=== PATIENT | male | born 1980 | race Caucasian/White ===

== ENCOUNTER 2021-09-14 02:36 | Emergency (ER) | payer BC, OTHER, SELFPAY ==
[2021-09-14 02:37] VITALS: BP 163/108; PULSE 89; RESP 16; TEMP 37; O2SAT 98; BMI 33.9
--- NOTE | 2021-09-14 02:55 | CT_ITS ---
STUDY: CT ABDOMEN AND PELVIS WITH CONTRAST REASON FOR EXAM: Male, 41 years old. Right upper quadrant pain. RADIATION DOSAGE (If Supplied By Facility): CTDIvol = ( 16.91 ) mGy, DLP = ( 1307.06 ) mGycm TECHNIQUE: Transaxial images were obtained from the dome of the diaphragm to the symphysis pubis without oral contrast. 100 mL Isovue 370 intravenous contrast was administered. Sagittal and coronal images were reconstructed. Individualized dose optimization techniques were used for this CT. COMPARISON: May 07, 2016. November 11, 2013. November 13, 2012. FINDINGS: The visualized lung bases are unremarkable. The visualized portions of the heart are within normal limits. Attenuation of the liver, and in correlation with prior studies, suggests hepatic steatosis. Normal gallbladder and extrahepatic biliary system. Normal spleen. Normal pancreas. Normal bilateral adrenal glands. Small bilateral nonobstructive renal calculi the largest on the right measuring 5 mm. The stomach is not well distended limiting evaluation. Normal small intestine. Suture line distal sigmoid colon. The appendix is visualized and appears normal. Normal abdominal aorta. Normal inferior vena cava. Normal retroperitoneum. No intra-abdominal free air. Normal urinary bladder. Normal visualized prostate gland. Normal abdominal wall. Normal osseous structures. CT/Abdomen/Pelvis W IV Cont ONLY IMPRESSION: Small bilateral nonobstructing renal calculi. Fatty liver. Electronically Signed: Dre Rios MD at 4:34 EST , Service support ,
[2021-09-14 03:04] LABS: Bacteria 0 SEEN /hpf (None Seen); Mucous, Urine 0 SEEN /hpf (<or=2+); Red Blood Cells-Urine 0 SEEN /hpf (0-5); Squamous Epithelial Cells - UA 0 SEEN /hpf (0-5); White Blood Cells 0 SEEN /hpf (0-5)
[2021-09-14 03:05] LABS: Absolute Lymphocyte Count 3.01 X10^3/uL (0.83-4.51); Absolute Neutrophil Count 3.9 X10^3/uL (2.0-7.7); Basophil# 0.05 X10^3/uL; Basophil% 0.6 % (0-1); Eosinophil# 0.15 X10^3/uL; Eosinophils% 1.9 % (0-5); Hematocrit 41.4 % (40-54); Hemoglobin 14.3 g/dL (13.0-16.5); Lymphocyte # 3.01 X10^3/ul (0.83-4.51); Lymphocyte % 38.1 % (19-41); Mean Corp Hgb Conc 34.5 g/dL (32-36); Mean Corpuscular Hgb 29.7 pg (27.0-32.0); Mean Corpuscular Volume 85.9 fL (80-94); Mean Platelet Vol. 10.1 fl (6.2-12.0); Monocyte# 0.75 X10^3/uL; Monocyte% 9.5 % (0-10); NRBC Flagged by Analyzer 0 % (0-5); Neutrophil # 3.91 X10^3/uL (2.7-7.7); Neutrophil % 49.5 % (47-70); Platelet Count 225 K/mm3 (150-450); RBC Distribution Width CV 12.7 % (11.6-14.6); RBC Distribution Width SD 39.4 fl (35.1-43.9); Red Blood Count 4.82 M/mm3 (4.6-6.2); White Blood Count 7.9 K/mm3 (4.4-11.0)
--- NOTE | 2021-09-14 03:14 | EX.ED.DYSGE1 ---
HPI History of Present Illness Chief Complaint: Abd Pain Narrative Narrative: Patient is a 41-year-old male with past medical history of diverticulitis who had to have 18 inches of his intestine removed approximately 10 years ago. He states over the past 2 to 3 days his stomach is just felt off. He states he has been taking it easy but he went to work this evening and ate some type of hotdog and about 30 minutes later noticed increased upper abdominal pain with nausea. He states that the pain was more intense than it has been over the past few days and secondary to this he presents for evaluation [facility] Home Medications Omeprazole [Prilosec] 20 mg PO BID 11/11/13 [History Last Taken 12/14/15] ondansetron 4 mg PO Q8H PRN 7 Days #21 tab 09/14/21 [Rx Last Taken Unknown] oxycodone-acetaminophen [Endocet] 1 tab PO Q6H PRN 3 Days #12 tab 09/14/21 [Rx Last Taken Unknown] Allergy/AdvReac Type Severity Reaction Status Date / Time No Known Allergies Allergy Verified 09/14/21 02:41 Social History Smoking Status: Never smoker [facility] ED Constitutional Constitutional ED: Denies chills or fever(s) ENT ENT ED: Denies sore throat Cardiovascular Cardiovascular: Denies chest pain Respiratory/Chest Respiratory/Chest: Denies cough or dyspnea Gastrointestinal Gastrointestinal: Reports abdominal pain, diarrhea and nausea; Denies constipation or vomiting Genitourinary Genitourinary ED: Denies dysuria or hematuria Musculoskeletal Musculoskeletal: Denies back pain or myalgias Integumentary Denies rash Neurologic Neurologic: Denies headache(s) Hematologic/Lymphatic Hematologic/Lymphatic: Denies easy bleeding or easy bruising EXAM Physical Exam Const Vital Signs: 09/14/21 02:37 Temperature 98.6 F Temperature Source Oral Pulse Rate 89 Respiratory Rate 16 Blood Pressure 163/108 H Blood Pressure Mean 126 Pulse Ox 98 Oxygen Delivery Method Room Air Positive well nourished, well developed and obese General Appearance ED: well developed Nutritional Appearance: obese HEENT Reports moist mucous membranes Eyes PERRL and EOMs intact bilaterally Neck supple Resp normal respiratory effort and clear to auscultation bilaterally Cardio regular rate and regular rhythm Rate: other Other Details: Radial pulses are plus 2 out of 4 bilaterally are equal and symmetric GI non-distended GI Narrative: Abdomen is obese soft and nondistended with hyperactive bowel sounds. There is pain with palpation in the right upper and right lower quadrant but greatest amount of pain is present in the right upper quadrant. There is slight guarding at the site but no rigidity and negative Fairchild sign. No pulsatile mass Palpation: soft Back/Spine no CVA tenderness Extremity normal to inspection Neuro oriented x3 and CN's II-XII intact bilaterally Sensorium / Orientation: alert Motor Exam: strength 5/5 throughout Psych mental status grossly normal Skin no rashes or lesions noted MDM MDM MDM Narrative Medical decision making narrative: Patient presented to the ER hypertensive but otherwise with stable vitals. He reported 3 to 4 days of generalized abdominal discomfort with loose stool/diarrhea. He does have a history of diverticulitis requiring surgery. My exam was pain more so of the right upper and lower quadrant and I had concern for atypical presentation of appendicitis or possibly gallbladder. Basic blood work and urine sample were obtained which revealed no acute finding. CT scan also revealed no acute inflammatory or obstructive process within the intestine. Therefore at this time with normal labs and a negative CT scan I feel patient has most likely a viral syndrome causing his symptoms. However as he is not showing changes to suggest septicemia from it there is no need for placement in the hospital and patient will be discharged home Lab Data Attestation: I reviewed the patient's lab results. Labs: Laboratory Results - last 24 hr 09/14/21 09/14/21 09/14/21 02:45 02:45 02:45 WBC 7.9 RBC 4.82 Hgb 14.3 Hct 41.4 MCV 85.9 MCH 29.7 MCHC 34.5 RDW Std Deviation 39.4 RDW Coeff of Joel 12.7 Plt Count 225 MPV 10.1 Immature Gran % (Auto) 0.400 Neut % (Auto) 49.5 Lymph % (Auto) 38.1 Haakon % (Auto) 9.5 Eos % (Auto) 1.9 Baso % (Auto) 0.6 Absolute Neuts (auto) 3.9 Absolute Lymphs (auto) 3.01 Nucleated RBC % 0 Sodium 141 Potassium 3.9 Chloride 107 Carbon Dioxide 26.0 Anion Gap 8 BUN 11 Creatinine 1.30 Estim Creat Clear Calc 81.25 Est GFR (MDRD) Af Amer 78 Est GFR (MDRD) Non-Af 64 BUN/Creatinine Ratio 8.5 L Glucose 109 H Calcium 9.0 Total Bilirubin 0.30 Direct Bilirubin < 0.05 AST 23 ALT 65 H Alkaline Phosphatase 65 Total Protein 7.6 Albumin 4.0 Globulin 3.6 Lipase 311 Urine Color Yellow Urine Clarity Clear Urine pH 6.0 Ur Specific [place] 1.020 Urine Protein 15 H Urine Glucose (UA) Normal Urine Ketones Negative Urine Occult Blood Negative Urine Nitrite Negative Urine Bilirubin Negative Urine Urobilinogen Normal Ur Leukocyte Esterase Negative Urine RBC 0 SEEN Urine WBC 0 SEEN Ur Squamous Epith Cells 0 SEEN Urine Bacteria 0 SEEN Urine Mucus 0 SEEN Radiography Diagnostic Testing: Clinical Impression(s) from Imaging Studies Abdomen/Pelvis CT 09/14/21 02:55 IMPRESSION: Small bilateral nonobstructing renal calculi. Fatty liver. Electronically Signed: Dre Rios MD at 4:34 EST , Service support , Discharge Plan Triage Chief Complaint: Abd Pain ED Provider: Channing Padilla Dx/Rx/DC Orders Clinical Impression: Nonspecific abdominal pain, Diarrhea Instructions: Abdominal Pain, ED Diarrhea, Unknown Cause Prescriptions: New oxycodone-acetaminophen [Endocet] 5-325 mg tablet 1 tab PO Q6H PRN (Reason: pain) 3 Days Qty: 12 RF: 0 ondansetron 4 mg tablet,disintegrating 4 mg PO Q8H PRN (Reason: nausea and vomiting) 7 Days Qty: 21 RF: 0 No Action Omeprazole [Prilosec] 40 MG capsule 20 mg PO BID RF: 0 Referrals: DMITRI SARMIENTO [Other] Disposition Disposition: Home, Self Care
[2021-09-14] MEDS: 0.9% Normal Saline 1,000 ML 999 ML IV (03:20)
[2021-09-14] MEDS: Ondansetron 4 MG/2 ML Vial IV (03:20)
[2021-09-14] MEDS: HYDROmorphone 1 MG/ML Syringe IV ×2 (03:21→04:18)
[2021-09-14 03:31] LABS: Color, Urine Yellow (Yellow); Glucose, Dipstick Normal (Normal); Ketone-Dipstick Negative (Negative); Leukocyte Esterase-Dipstick Negative /ul (Negative); Nitrite-Dipstick Negative (Negative); Occult Blood-Urine Negative /ul (Negative); Protein-Dipstick 15 mg/dl (Negative); Urine Bilirubin Dipstick Negative (Negative); Urine Clarity Clear (Clear); Urine Urobilinogen Normal (Normal)
[2021-09-14 03:58] LABS: AST(SGOT) 23 U/L (15-37); Alanine Aminotransfer ALT/SGPT 65 U/L (16-61); Alkaline Phosphatase 65 U/L (45-117); Anion Gap 8 (5-15); BUN 11 mg/dL (7-18); BUN/Creat Ratio 8.5 RATIO (10-20); Bilirubin, Direct < 0.05 mg/dL (0.00-0.30); Chloride 107 mmol/L (98-107); EST Glomerular Filtration Rate 64 mL/min (>60); Est Glom Filt Rate - Afr Amer 78 mL/min (>60); Estimated Creatinine Clearance 81.25 ml/min; Globulin 3.6 g/dL (2.2-4.2); Glucose 109 mg/dL (74-106); Lipase 311 U/L (73-393); Potassium 3.9 mmol/L (3.5-5.1); Protein, Total 7.6 g/dL (6.4-8.2); Sodium Level 141 mmol/L (136-145)
[2021-09-14 05:37] VITALS: BP 158/60; PULSE 79; RESP 18
== END 2021-09-14 05:37 | disposition home or self-care (01) ==
PROVIDERS: Emergency Provider Emergency Medicine
DX: R10.11 Right upper quadrant pain (principal); R19.7 Diarrhea, unspecified; R11.0 Nausea; E66.9 Obesity, unspecified; Z87.19 Personal history of other diseases of the digestive system
CPT/HCPCS: 74177; 80048; 80076; 81001; 83690; 85025; 96361; 96374; 96375; 96376; 99282; J7030; Q9967; A4216; J2405

== ENCOUNTER 2022-09-08 22:22 | Emergency (ER) | payer SELFPAY ==
[2022-09-08 22:23] VITALS: BP 154/88; PULSE 99; RESP 19; TEMP 35.5; O2SAT 98; BMI 32.5
--- NOTE | 2022-09-08 22:33 | CT_ITS ---
EXAM: CT ABDOMEN AND PELVIS WITH INTRAVENOUS CONTRAST CLINICAL INDICATION: LLQ Pain TECHNIQUE: Helically acquired images were obtained of the abdomen and pelvis with intravenous contrast. This CT exam was performed using one or more of the following dose reduction techniques: automated exposure control, adjustment of the mA and/or kV according to patient size, and/or use of iterative reconstruction technique. This report was created using [employer] report generation technology. CONTRAST: 100 cc of Isovue-370 IV. RADIATION DOSE: CTDIvol = 19.98 mGy, DLP = 1343.26 mGy-cm. COMPARISON: . FINDINGS: LOWER THORAX: Unremarkable. Lung bases are clear. No cardiomegaly. No significant pericardial effusion. ABDOMEN: LIVER: There is diffuse low-attenuation of the liver. GALLBLADDER AND BILE DUCTS: Unremarkable. No calcified gallstones. No gallbladder distention or wall edema. No intra- or extrahepatic biliary ductal dilation. PANCREAS: Unremarkable. No focal cystic or solid mass. SPLEEN: Unremarkable. Normal size without focal cystic or solid mass. ADRENALS: Unremarkable. No nodules. KIDNEYS AND URETERS: Small bilateral nonobstructing renal calculi similar to the previous exam. No hydronephrosis or ureteral calculi. Normal renal size and position. STOMACH AND BOWEL: Mild inflammatory changes around diverticula in the proximal sigmoid colon. No abscess or extraluminal gas. No stomach or bowel distention. No focal inflammatory change. PELVIS: APPENDIX: Normal appendix. BLADDER: Unremarkable. REPRODUCTIVE: Unremarkable as visualized. No mass. ABDOMEN and PELVIS: INTRAPERITONEAL SPACE: See above. BONES/JOINTS: Unremarkable. No suspicious lytic or blastic abnormality. SOFT TISSUES: Unremarkable. No discrete abdominal or pelvic wall hernia. VASCULATURE: Unremarkable. Abdominal aorta is non-dilated. LYMPH NODES: Unremarkable. No enlarged lymph nodes. CT/Abdomen/Pelvis W IV Cont ONLY IMPRESSION: 1. Mild proximal sigmoid diverticulitis. No abscess or extraluminal gas. 2. Fatty liver. 3. Small bilateral nonobstructing renal calculi similar to the previous exam. 4. No hydronephrosis or ureteral calculi. 5. Normal appendix. Electronically Signed: Jonas Wylie MD at 23:38 EST ,
--- NOTE | 2022-09-08 22:35 | EX.ED.DYSGE1 ---
HPI History of Present Illness Chief Complaint: Flank Pain Informant: patient Narrative Narrative: Patient presents with left lower quadrant pain. This really is started to build up today. It is worse if he hits bumps or presses in the area. He had mild nausea but no vomiting. He is not having left back or flank pain. He does have a history of kidney stones but does not think this feels quite like them and he also has a history of diverticulitis but does not feel this is quite the same. He did pass 2 kidney stones earlier this week but was not having this pain when he had that. He did have some left CVA area pain prior to those stones but has none of that pain now. He has not vomited. He has not had fevers. Pressing or bumps make it worse nothing makes it better. [facility] Medical History (Updated 09/09/22 @ 00:[address] Go oGmez MD) Diverticulitis Home Medications Omeprazole [Prilosec] 20 mg PO BID 11/11/13 [History Last Taken 12/14/15] ondansetron 4 mg disintegrating tablet 4 mg PO Q8H PRN nausea and vomiting 7 days #21 tabs 09/14/21 [Rx Last Taken Unknown] oxycodone-acetaminophen 5 mg-325 mg tablet (Endocet) 1 tab PO Q6H PRN pain 3 days #12 tabs 09/14/21 [Rx Last Taken Unknown] amoxicillin 875 mg-potassium clavulanate 125 mg tablet 1 tab PO BID #20 tabs 09/09/22 [Rx Last Taken Unknown] ondansetron 4 mg disintegrating tablet 4 mg PO Q8H PRN nausea and vomiting #10 tabs 09/09/22 [Rx Last Taken Unknown] oxycodone-acetaminophen 5 mg-325 mg tablet (Percocet) 1 tab PO Q6H PRN pain 3 days #10 tabs 09/09/22 [Rx Last Taken Unknown] Allergy/AdvReac Type Severity Reaction Status Date / Time No Known Allergies Allergy Verified 09/14/21 02:41 Social History Smoking Status: Never smoker [facility] ED Constitutional Constitutional ED: Denies fever(s) ENT ENT ED: Denies rhinorrhea or sore throat Cardiovascular Cardiovascular: Denies chest pain or palpitations Respiratory/Chest Respiratory/Chest: Denies cough or dyspnea Gastrointestinal Gastrointestinal: Reports abdominal pain and nausea; Denies diarrhea, melena or vomiting Genitourinary Genitourinary ED: Denies hematuria Musculoskeletal Musculoskeletal: Denies back pain or neck pain Integumentary Denies rash Neurologic Neurologic: Denies headache(s) Endocrine Endocrinology: Denies polydipsia or polyuria Hematologic/Lymphatic Hematologic/Lymphatic: Denies easy bleeding or easy bruising Allergic/Immunologic Allergic/Immunologic ED: Denies urticaria EXAM Physical Exam Const Vital Signs: 09/08/22 22:23 Temperature 96 F L Temperature Source Temporal Pulse Rate 99 Respiratory Rate 19 H Blood Pressure 154/88 H Blood Pressure Mean 110 Pulse Ox 98 Oxygen Delivery Method Room Air Positive well nourished and well developed General Appearance ED: well developed and NAD; Negative for diaphoretic HEENT Reports moist mucous membranes Eyes General Eye ED: Negative for scleral icterus Neck no JVD Resp normal respiratory effort and clear to auscultation bilaterally Cardio regular rate and regular rhythm GI normal to inspection, nondistended, normoactive bowel sounds and non-distended GI Narrative: Abdomen is not distended. Bowel sounds are normal. He does have some left lower quadrant tenderness but no rebound or guarding. I do not get CVA tenderness. I feel no hernia or mass. Back/Spine no CVA tenderness Extremity General Extremety ED: Negative for tenderness Neuro oriented x3 Psych mental status grossly normal MDM MDM MDM Narrative Medical decision making narrative: CT is consistent with diverticulitis. CBC including white count platelets hemoglobin are normal. Electrolytes are overall unremarkable. Urine is clean. Patient will be treated with antibiotics pain meds meds for nausea. If he gets recurrent vomiting, uncontrollable pain, worsening pain high fevers he may need to come back. We discussed about some risk of perforations. We also discussed the importance of a liquid and then bland diet as a significant part of treatment of this. Lab Data Attestation: I reviewed the patient's lab results. Labs: Laboratory Results - last 24 hr 09/08/22 09/08/22 09/08/22 22:55 22:55 22:55 WBC 8.4 RBC 4.52 L Hgb 13.4 Hct 39.7 L MCV 87.8 MCH 29.6 MCHC 33.8 RDW Std Deviation 40.9 RDW Coeff of Joel 12.8 Plt Count 196 MPV 10.5 Immature Gran % (Auto) 1.700 H Neut % (Auto) 61.2 Lymph % (Auto) 22.7 Parker % (Auto) 10.9 H Eos % (Auto) 2.6 Baso % (Auto) 0.9 Absolute Neuts (auto) 5.2 Absolute Lymphs (auto) 1.91 Nucleated RBC % 0 Sodium 141 Potassium 3.6 Chloride 109 H Carbon Dioxide 27.0 Anion Gap 5 BUN 11 Creatinine 1.19 Estim Creat Clear Calc 87.85 Est GFR (MDRD) Af Amer 86 Est GFR (MDRD) Non-Af 71 BUN/Creatinine Ratio 9.2 L Glucose 100 Calcium 8.7 Urine Color Yellow Urine Clarity Clear Urine pH 7.0 Ur Specific [place] 1.010 Urine Protein Negative Urine Glucose (UA) Normal Urine Ketones Negative Urine Occult Blood Negative Urine Nitrite Negative Urine Bilirubin Negative Urine Urobilinogen Normal Ur Leukocyte Esterase Negative Urine RBC 0 SEEN Urine WBC 0 SEEN Ur Squamous Epith Cells 0 SEEN Urine Bacteria 0 SEEN Urine Mucus 0 SEEN Radiography Diagnostic Testing: Clinical Impression(s) from Imaging Studies Abdomen/Pelvis CT 09/08/22 22:33 IMPRESSION: 1. Mild proximal sigmoid diverticulitis. No abscess or extraluminal gas. 2. Fatty liver. 3. Small bilateral nonobstructing renal calculi similar to the previous exam. 4. No hydronephrosis or ureteral calculi. 5. Normal appendix. Electronically Signed: Jonas Wylie MD at 23:38 EST , CT looked at by me and read by radiology is consistent with mild diverticulitis but no abscess or perforation. No sign of obstructive stone. Discharge Plan Triage Chief Complaint: Flank Pain ED Provider: Go Gomez Dx/Rx/DC Orders Clinical Impression: Diverticulitis Instructions: ED Diverticulitis Prescriptions: New oxycodone-acetaminophen [Percocet] 5-325 mg tablet 1 tab PO Q6H PRN (Reason: pain) 3 Days Qty: 10 0RF ondansetron 4 mg tablet,disintegrating 4 mg PO Q8H PRN (Reason: nausea and vomiting) Qty: 10 0RF amoxicillin-pot clavulanate 875-125 mg tablet 1 tab PO BID Qty: 20 0RF No Action Omeprazole [Prilosec] 40 MG capsule 20 mg PO BID Label Comments: GERD oxycodone-acetaminophen [Endocet] 5-325 mg tablet 1 tab PO Q6H PRN (Reason: pain) 3 Days Qty: 12 0RF ondansetron 4 mg tablet,disintegrating 4 mg PO Q8H PRN (Reason: nausea and vomiting) 7 Days Qty: 21 0RF Referrals: [facility],Out of [Non-Staff] - 3-5 Days if not improving Disposition Disposition: Home, Self Care
[2022-09-08] MEDS: 0.9% Normal Saline 1,000 ML 1000 ML IV (22:56)
[2022-09-08 23:05] LABS: Bacteria 0 SEEN /hpf (None Seen); Mucous, Urine 0 SEEN /hpf (<or=2+); Red Blood Cells-Urine 0 SEEN /hpf (0-5); Squamous Epithelial Cells - UA 0 SEEN /hpf (0-5); White Blood Cells 0 SEEN /hpf (0-5)
[2022-09-08 23:07] LABS: Color, Urine Yellow (Yellow); Glucose, Dipstick Normal (Normal); Ketone-Dipstick Negative (Negative); Leukocyte Esterase-Dipstick Negative /ul (Negative); Nitrite-Dipstick Negative (Negative); Occult Blood-Urine Negative /ul (Negative); Protein-Dipstick Negative (Negative); Urine Bilirubin Dipstick Negative (Negative); Urine Clarity Clear (Clear); Urine Urobilinogen Normal (Normal)
[2022-09-08 23:26] LABS: Anion Gap 5 (5-15); BUN 11 mg/dL (7-18); BUN/Creat Ratio 9.2 RATIO (10-20); Calcium,Total 8.7 mg/dL (8.5-10.1); Chloride 109 mmol/L (98-107); Creatinine, Serum 1.19 mg/dL (0.70-1.30); EST Glomerular Filtration Rate 71 mL/min (>60); Est Glom Filt Rate - Afr Amer 86 mL/min (>60); Estimated Creatinine Clearance 87.85 ml/min; Glucose 100 mg/dL (74-106); Potassium 3.6 mmol/L (3.5-5.1); Sodium Level 141 mmol/L (136-145)
[2022-09-08] MEDS: Ondansetron 4 MG/2 ML Vial IV (23:26)
[2022-09-08] MEDS: Morphine 4 MG/ML Syringe IV (23:26)
[2022-09-08 23:40] LABS: Absolute Lymphocyte Count 1.91 X10^3/uL (0.83-4.51); Absolute Neutrophil Count 5.2 X10^3/uL (2.0-7.7); Basophil# 0.08 X10^3/uL; Basophil% 0.9 % (0-1); Eosinophil# 0.22 X10^3/uL; Eosinophils% 2.6 % (0-5); Hematocrit 39.7 % (40-54); Hemoglobin 13.4 g/dL (13.0-16.5); Lymphocyte # 1.91 X10^3/ul (0.83-4.51); Lymphocyte % 22.7 % (19-41); Mean Corp Hgb Conc 33.8 g/dL (32-36); Mean Corpuscular Hgb 29.6 pg (27.0-32.0); Mean Corpuscular Volume 87.8 fL (80-94); Mean Platelet Vol. 10.5 fl (6.2-12.0); Monocyte# 0.92 X10^3/uL; Monocyte% 10.9 % (0-10); NRBC Flagged by Analyzer 0 % (0-5); Neutrophil # 5.16 X10^3/uL (2.7-7.7); Neutrophil % 61.2 % (47-70); Platelet Count 196 K/mm3 (150-450); RBC Distribution Width CV 12.8 % (11.6-14.6); RBC Distribution Width SD 40.9 fl (35.1-43.9); Red Blood Count 4.52 M/mm3 (4.6-6.2); White Blood Count 8.4 K/mm3 (4.4-11.0)
[2022-09-09] MEDS: Amox/Clavulanate 875 MG Tablet PO (00:10)
[2022-09-09] MEDS: Ketorolac 15 MG/ML Vial IV (00:10)
== END 2022-09-09 00:47 | disposition home or self-care (01) ==
PROVIDERS: Emergency Provider Emergency Medicine; Visit Provider Emergency Medicine
DX: K57.32 Diverticulitis of large intestine without perforation or abscess without bleeding (principal); R10.32 Left lower quadrant pain; R11.0 Nausea; Z87.442 Personal history of urinary calculi
CPT/HCPCS: 74177; 80048; 81001; 85025; 96361; 96374; 96375; 99284; J7030; A4216; J2405

== ENCOUNTER 2022-10-08 23:38 | Emergency (ER) | payer OTHER, SELFPAY ==
[2022-10-08 23:39] VITALS: BP 122/89; PULSE 74; RESP 15; TEMP 36.6; O2SAT 98; BMI 34.3
--- NOTE | 2022-10-09 00:03 | CT_ITS ---
EXAM: CT ANGIOGRAPHY CHEST, ABDOMEN AND PELVIS WITH INTRAVENOUS CONTRAST CLINICAL INDICATION: chest and abd pain, blurry vission TECHNIQUE: Helically acquired angiography images were obtained of the chest, abdomen and pelvis with intravenous contrast. This CT exam was performed using one or more of the following dose reduction techniques: automated exposure control, adjustment of the mA and/or kV according to patient size, and/or use of iterative reconstruction technique. This report was created using [employer] report generation technology. MIP reconstructed images were created and reviewed. CONTRAST: 100 cc of Isovue 370 IV. RADIATION DOSE: CTDIvol = 17.31 mGy, DLP = 1437.18 mGy-cm. COMPARISON: CT scan of the abdomen and pelvis 09/08/2022. FINDINGS: VASCULATURE: AORTA: No acute findings. Normal in caliber. No dissection. PULMONARY ARTERIES: Unremarkable. Normal in caliber. No obvious central pulmonary embolism although this study was not performed with the pulmonary embolism protocol. GREAT VESSELS OF AORTIC ARCH: Unremarkable. Normal in caliber. No dissection. CELIAC TRUNK AND MESENTERIC ARTERIES: No acute findings. No occlusion or significant stenosis. No dissection. RENAL ARTERIES: No acute findings. No occlusion or significant stenosis. No dissection. ILIAC ARTERIES: No acute findings. No occlusion or significant stenosis. No dissection. CHEST: LUNGS AND PLEURAL SPACES: Unremarkable. No mass. No consolidation or edema. No pleural effusion or thickening. No pneumothorax. HEART: Unremarkable. Heart size is normal. No pericardial effusion. MEDIASTINUM: Unremarkable. No mediastinal or hilar adenopathy. Esophagus is unremarkable. No hiatal hernia. THYROID: Unremarkable. No thyroid lesions. ABDOMEN: LIVER: There is diffuse low-attenuation of the liver. GALLBLADDER AND BILE DUCTS: Unremarkable. No calcified gallstones. No gallbladder distention or wall edema. No intra- or extrahepatic biliary ductal dilation. PANCREAS: Unremarkable. No focal cystic or solid mass. SPLEEN: Unremarkable. Normal size without focal cystic or solid mass. ADRENALS: Unremarkable. No nodules. KIDNEYS AND URETERS: Unremarkable. Normal renal size and position. No hydronephrosis. STOMACH AND BOWEL: Resolution of the previously noted sigmoid diverticulitis. Status post partial sigmoidectomy. No stomach or bowel distention. PELVIS: APPENDIX: Normal appendix. BLADDER: Unremarkable. REPRODUCTIVE: Unremarkable as visualized. No mass. CHEST, ABDOMEN and PELVIS: INTRAPERITONEAL SPACE: Unremarkable. No ascites or other fluid collection. No free air. BONES/JOINTS: Unremarkable. No suspicious lytic or blastic abnormality. SOFT TISSUES: Unremarkable. No discrete abdominal or pelvic wall hernia. LYMPH NODES: Unremarkable. No enlarged lymph nodes. CT/CTA Chst, Abd, Pel W and/or WO IMPRESSION: 1. No acute cardiothoracic or abdominal pelvic abnormality. 2. Resolution of the previously noted sigmoid diverticulitis. 3. Fatty liver. 4. Status post partial sigmoidectomy. Electronically Signed: Jonas Wylie MD at 0:47 EST ,
--- NOTE | 2022-10-09 00:04 | EKG12_ITS ---
Test Reason : CP Blood Pressure : / mmHG Vent. Rate : 076 BPM Atrial Rate : 076 BPM P-R Int : 146 ms QRS Dur : 098 ms QT Int : 394 ms P-R-T Axes : 017 015 006 degrees QTc Int : 443 ms Normal sinus rhythm Inferior infarct , age undetermined, cannot be excluded Abnormal ECG Confirmed by ANTOINE SHABAZZ, BARRETT ([id number]), editor managing newspaper ERMA ESTRADA ([id number]) on 10/10/2022 9:04:32 AM Referred By: SAMI Confirmed By:BARRETT SCHULTZ MD
--- NOTE | 2022-10-09 00:08 | ED.VIS.CHEST ---
HPI History of Present Illness Chief Complaint: Chest Pain Informant: patient Narrative Narrative: Patient is a 42-year-old male with history of GERD and diverticulitis presenting with chest pain. Patient states he is has not felt good all day. 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 He states he was pretty exhausted but had hard time sleeping last night. He then developed a heaviness in the left side of his chest. He states he just could not get comfortable. Throughout the day he is intermittently felt lightheaded and while at work he had blurry vision. He states his with both eyes and does not change if he opens or closes 1 eye. He is also developed some pain in his left lower quadrant. States that feels different than his diverticulitis. While at work he felt really clammy and his palms are very sweaty. EMS was called and he was sent to the emergency room for his symptoms. Patient denies any associated numbness or tingling. He is currently complaining of headache. Denies any fever or chills. Never anything like this before. Did receive aspirin and nitroglycerin in route with no improvement of his symptoms. No other complaints at this time. [facility] Medical History Diverticulitis Kidney stones Home Medications Omeprazole [Prilosec] 20 mg PO BID 11/11/13 [History Last Taken 12/14/15] lisinopril 10 mg tablet 10 mg PO DAILY 10/08/22 [History Last Taken Unknown] sertraline 50 mg tablet 50 mg PO DAILY 10/08/22 [History Last Taken Unknown] lorazepam 1 mg tablet (Ativan) 1 mg PO QHS PRN sleep #5 tabs 10/09/22 [Rx Last Taken Unknown] Allergy/AdvReac Type Severity Reaction Status Date / Time No Known Allergies Allergy Verified 09/14/21 02:41 Social History Smoking Status: Never smoker ROS ROS ED Constitutional Constitutional ED: Reports sweats; Denies chills or fever(s) Eyes Eyes: Reports blurry vision ENT ENT ED: Denies rhinorrhea or sore throat Cardiovascular Cardiovascular: Reports as per HPI and chest pain Respiratory/Chest Respiratory/Chest: Denies cough or dyspnea Gastrointestinal Gastrointestinal: Reports abdominal pain; Denies constipation, diarrhea, nausea or vomiting Genitourinary Genitourinary ED: Denies dysuria or hematuria Musculoskeletal Musculoskeletal: Reports back pain; Denies arthralgias Integumentary Denies rash Neurologic Neurologic: Reports headache(s); Denies paresthesias or weakness Psychiatric Psychiatric: Denies anxiety Hematologic/Lymphatic Hematologic/Lymphatic: Denies easy bleeding or easy bruising EXAM Physical Exam Const Vital Signs: 10/08/22 23:39 10/09/22 00:25 10/09/22 01:39 Temperature 97.9 F Temperature Source Oral Pulse Rate 74 71 Respiratory Rate 15 15 Blood Pressure 122/89 H 132/96 H Blood Pressure Mean 100 108 Pulse Ox 98 98 98 Oxygen Delivery Method Room Air Room Air Room Air 10/09/22 02:00 Temperature Temperature Source Pulse Rate 73 Respiratory Rate 16 Blood Pressure 130/90 H Blood Pressure Mean 103 Pulse Ox 98 Oxygen Delivery Method Room Air Positive well nourished and well developed General Appearance ED: well developed and NAD HEENT Reports moist mucous membranes normocephalic and atraumatic Eyes PERRL and EOMs intact bilaterally Eyes Narrative: No nystagmus. No disconjugate gaze appreciated Neck supple and no JVD Neck Narrative: Normal range of motion Chest Wall inspection of chest normal and palpation of chest normal Resp normal respiratory effort and clear to auscultation bilaterally Auscultation: Negative for wheezes or diminished lung sounds Cardio regular rate, regular rhythm and no murmurs GI normal to inspection, nondistended, normoactive bowel sounds and soft to palpation Extremity normal to inspection General Extremety ED: Negative for edema or pulses abnormal General Extremity: Negative for edema or pulses abnormal Neuro oriented x3 and no sensory deficits noted Sensorium / Orientation: awake and alert Motor Exam: strength 5/5 throughout; Negative for general weakness Psych mental status grossly normal Skin no rashes or lesions noted and no wounds Heart Score History: Slightly/Non-Suspicious ECG: Normal Age: >45 - <65 years Risk Factors: 1 or 2 Risk Factors Troponin: </= Normal Limit Score: 2 MDM MDM MDM Narrative Medical decision making narrative: Patient evaluated for 1 day of chest pain as well as left lower quadrant abdominal pain. Vital signs are normal. He also has associated clamminess and blurry vision. Patient is given IV fluids and morphine. Differential includes ACS and aortic dissection. EKG is not consistent with ST elevation [place]. Dissection protocol obtained given his consolation of chest, abdominal and back pain. Patient is given morphine for pain control as well as IV fluids. While he reports blurry vision he does not have a visual field cut, it is binocular and he has no focal neurologic deficits. Do not think his symptoms are an acute stroke. CTA of the chest on pelvis not show any acute process including aortic dissection. Pain improved with morphine. Given total of 2 doses. He is given IV fluids in the emergency room. Patient's lab work remarkable for mildly elevated creatinine of 1.32. This is close to his baseline at 1.2. Delta high-sensitivity troponin are negative at 4 and 3. Patient does go on to state that he has been having a really difficult time sleeping. He tried Ambien from his doctor, melatonin as well as ZzzQuil with no relief. He is wondering if his lack of sleep and poor sleep is causing his symptoms. Given his largely negative cardiac work-up with no acute cardiopulmonary emergency found I will trial a short course of Ativan to help with his sleep. Patient is given a dose in the ER. He is counseled to not mix with alcohol and or drive/operate heavy machinery while taking sleeping medicine. He verbalizes given understands plan. His is able to drive him home. Patient is given return precautions. Encouraged to follow-up with his primary care doctor for outpatient stress test and further outpatient cardiac evaluation. Counseled that the exact cause of his pain is not clear at this time however his work-up is largely normal and I do think he is safe for outpatient follow-up. He verbalizes agreement and understands this plan. Lab Data Attestation: I reviewed the patient's lab results. Labs: Laboratory Results - last 24 hr 10/09/22 10/09/22 10/09/22 00:00 00:00 00:00 WBC 7.0 RBC 4.76 Hgb 14.0 Hct 41.0 MCV 86.1 MCH 29.4 MCHC 34.1 RDW Std Deviation 39.6 RDW Coeff of Joel 12.6 Plt Count 192 MPV 10.1 Immature Gran % (Auto) 0.400 Neut % (Auto) 58.4 Lymph % (Auto) 28.6 [place] % (Auto) 9.3 Eos % (Auto) 2.4 Baso % (Auto) 0.9 Absolute Neuts (auto) 4.1 Absolute Lymphs (auto) 2.01 Nucleated RBC % 0 PT 13.7 INR 1.1 APTT 28.2 Sodium Potassium Chloride Carbon Dioxide Anion Gap BUN Creatinine Estim Creat Clear Calc Est GFR (MDRD) Af Amer Est GFR (MDRD) Non-Af BUN/Creatinine Ratio Glucose Calcium Total Bilirubin AST ALT Alkaline Phosphatase Troponin I High Sens 3 Total Protein Albumin Globulin Albumin/Globulin Ratio POC Glucose 10/09/22 10/09/22 10/09/22 00:00 00:06 02:06 WBC RBC Hgb Hct MCV MCH MCHC RDW Std Deviation RDW Coeff of Joel Plt Count MPV Immature Gran % (Auto) Neut % (Auto) Lymph % (Auto) [place] % (Auto) Eos % (Auto) Baso % (Auto) Absolute Neuts (auto) Absolute Lymphs (auto) Nucleated RBC % PT INR APTT Sodium 143 Potassium 3.7 Chloride 113 H Carbon Dioxide 23.0 Anion Gap 7 BUN 12 Creatinine 1.32 H Estim Creat Clear Calc 79.20 Est GFR (MDRD) Af Amer 76 Est GFR (MDRD) Non-Af 63 BUN/Creatinine Ratio 9.1 L Glucose 109 H Calcium 8.1 L Total Bilirubin 0.40 AST 19 ALT 39 Alkaline Phosphatase 67 Troponin I High Sens 4 Total Protein 7.0 Albumin 3.7 Globulin 3.3 Albumin/Globulin Ratio 1.1 POC Glucose 107 H Radiography Diagnostic Testing: Clinical Impression(s) from Imaging Studies Chest/Abdomen/Pelvis CTA 10/09/22 00:03 IMPRESSION: 1. No acute cardiothoracic or abdominal pelvic abnormality. 2. Resolution of the previously noted sigmoid diverticulitis. 3. Fatty liver. 4. Status post partial sigmoidectomy. Electronically Signed: Jonas Wylie MD at 0:47 EST , Rhythm Strip Rhythm Strip: Sinus Rhythm Rate: 76 Ectopy: None EKG Initial EKG: Attestation: I personally reviewed and interpreted this EKG as follows: Interpretation: Sinus Rhythm Comments: Normal sinus rhythm at a rate of 76 bpm Normal axis Normal intervals Normal ST segments Compared to prior EKG on 12/15/2015 patient has no acute changes Discharge Plan Triage Chief Complaint: Chest Pain ED Provider: Dali Shepard Dx/Rx/DC Orders Clinical Impression: Chest pain of uncertain etiology, Insomnia, Blurred vision, bilateral, Abdominal pain in male Instructions: ED Chest Pain, Uncertain Cause, ED Insomnia Prescriptions: New lorazepam [Ativan] 1 mg tablet 1 mg PO QHS PRN (Reason: sleep) Qty: 5 0RF No Action Omeprazole [Prilosec] 40 MG capsule 20 mg PO BID Label Comments: GERD lisinopril 10 mg tablet 10 mg PO DAILY sertraline 50 mg tablet 50 mg PO DAILY Primary Care Provider: [facility] ,Out of Referrals: [facility] Doctor,Out of [Primary Care Provider] - Activity Restrictions/Additional Instructions: Please follow-up with your primary care doctor for further evaluation of your symptoms tonight. At this time I think you are safe to go home. The exact cause is not clear. I recommend he follow-up for further cardiac evaluation. You been given a short course of Ativan to see if this helps with your sleep/insomnia. Please discuss further sleep medicine with your primary care doctor. Disposition Disposition: Home, Self Care
[2022-10-09 00:15] LABS: Absolute Lymphocyte Count 2.01 X10^3/uL (0.83-4.51); Absolute Neutrophil Count 4.1 X10^3/uL (2.0-7.7); Basophil# 0.06 X10^3/uL; Basophil% 0.9 % (0-1); Eosinophil# 0.17 X10^3/uL; Eosinophils% 2.4 % (0-5); Lymphocyte # 2.01 X10^3/ul (0.83-4.51); Lymphocyte % 28.6 % (19-41); Mean Corp Hgb Conc 34.1 g/dL (32-36); Mean Corpuscular Hgb 29.4 pg (27.0-32.0); Mean Corpuscular Volume 86.1 fL (80-94); Mean Platelet Vol. 10.1 fl (6.2-12.0); Monocyte# 0.65 X10^3/uL; Monocyte% 9.3 % (0-10); NRBC Flagged by Analyzer 0 % (0-5); Neutrophil % 58.4 % (47-70); Platelet Count 192 K/mm3 (150-450); RBC Distribution Width CV 12.6 % (11.6-14.6); RBC Distribution Width SD 39.6 fl (35.1-43.9); Red Blood Count 4.76 M/mm3 (4.6-6.2)
[2022-10-09 00:25] VITALS: O2SAT 98
[2022-10-09 00:26] LABS: Bedside Glucose 107 mg/dL (74-106)
[2022-10-09] MEDS: Morphine 4 MG/ML Syringe IV ×2 (00:29→02:16)
[2022-10-09] MEDS: 0.9% Normal Saline 1,000 ML 1000 ML IV (00:29)
[2022-10-09 00:38] LABS: Troponin-I HS (w/2H Reflex) 3 pg/mL (3.0-78.0)
[2022-10-09 00:50] LABS: International Normalized Ratio 1.1; Prothrombin Time (Protime)PT. 13.7 SECONDS (11.7-14.9)
[2022-10-09 00:51] LABS: Partial Thromboplast Time 28.2 Seconds (24.1-36.2)
[2022-10-09 01:39] VITALS: BP 132/96; PULSE 71; RESP 15; O2SAT 98
[2022-10-09 02:00] VITALS: BP 130/90; PULSE 73; RESP 16; O2SAT 98
[2022-10-09 02:10] LABS: Reflex Troponin-HS? (from REC) Y
[2022-10-09 02:11] LABS: ALB/GLOB Ratio 1.1 RATIO (0.9-2.4); AST(SGOT) 19 U/L (15-37); Alanine Aminotransfer ALT/SGPT 39 U/L (16-61); Albumin, Serum 3.7 g/dL (3.2-5.0); Alkaline Phosphatase 67 U/L (45-117); Anion Gap 7 (5-15); BUN 12 mg/dL (7-18); BUN/Creat Ratio 9.1 RATIO (10-20); Calcium,Total 8.1 mg/dL (8.5-10.1); Chloride 113 mmol/L (98-107); Creatinine, Serum 1.32 mg/dL (0.70-1.30); EST Glomerular Filtration Rate 63 mL/min (>60); Est Glom Filt Rate - Afr Amer 76 mL/min (>60); Globulin 3.3 g/dL (2.2-4.2); Glucose 109 mg/dL (74-106); Potassium 3.7 mmol/L (3.5-5.1); Sodium Level 143 mmol/L (136-145)
[2022-10-09 02:52] LABS: Troponin-I HS 4 pg/mL (3.0-78.0)
[2022-10-09] MEDS: LORazepam 1 MG Tablet PO (04:08)
[2022-10-09 04:10] VITALS: BP 138/86; PULSE 68; RESP 18; O2SAT 100
== END 2022-10-09 04:11 | disposition home or self-care (01) ==
PROVIDERS: Emergency Provider Emergency Medicine; Visit Provider Emergency Medicine
DX: R07.9 Chest pain, unspecified (principal); R10.32 Left lower quadrant pain; M54.9 Dorsalgia, unspecified; H53.8 Other visual disturbances; R51.9 Headache, unspecified; G47.00 Insomnia, unspecified; K21.9 Gastro-esophageal reflux disease without esophagitis; Z87.19 Personal history of other diseases of the digestive system; Z79.899 Other long term (current) drug therapy
CPT/HCPCS: 71275; 74174; 80053; 82962; 84484; 85025; 85610; 85730; 93005; 96361; 96374; 96376; 99285; J7030; Q9967; A4216

== ENCOUNTER 2024-12-30 22:52 | Emergency (ER) | payer OTHER, MEDICAID, SELFPAY ==
[2024-12-30 22:52] VITALS: BP 153/94; PULSE 105; RESP 18; TEMP 36.8; O2SAT 97; BMI 33.3
--- NOTE | 2024-12-30 23:22 | CT_ITS ---
PROCEDURE: ABDOMEN/PELVIS WITHOUT CONT 12/30/2024 REASON FOR EXAM: KIDNEY STONE TECHNIQUE: Abdomen and pelvis CT without intravenous contrast. Noncontrast technique limits evaluation of the abdominal and pelvic viscera. Coronal and Sagittal reconstruction series were provided. One or more dose reduction techniques were used (e.g., Automated exposure control, adjustment of the mA and/or kV according to patient size, use of iterative reconstruction technique). PATIENT PREPARATION: Per protocol ORAL CONTRAST TYPE: None. COMPARISON: None available FINDINGS: Scarring or atelectasis at the left base. The liver, gallbladder, adrenal glands, pancreas and spleen appear within limits on noncontrast imaging. Bilateral right more than left in number and size of small nonobstructing intrarenal stones noted. No ureteral or bladder stone identified. No perinephric edema. Abdominal aorta appears within limits without aneurysm. No adenopathy. No bowel dilation or free air. Normal caliber appendix without secondary signs. Diverticulosis without diverticulitis. Previous partial sigmoid resection noted. The bladder appears within limits. Prostate appears within limits. No free fluid seen. The visualized osseous structures appear within limits. CT/Abdomen/Pelvis without Cont IMPRESSION: No evidence of acute intra-abdominal process on noncontrast imaging. Bilateral nonobstructing nephrolithiasis as above. Diverticulosis without diverticulitis. Previous partial sigmoid resection note d. Reading Location: [id number]
[2024-12-30 23:32] LABS: Bacteria 0 SEEN /hpf (None Seen); Mucous, Urine 0 SEEN /hpf (<or=2+); Red Blood Cells-Urine 0 SEEN /hpf (0-5)
[2024-12-30 23:33] LABS: Absolute Lymphocyte Count 1.83 X10^3/uL (0.83-4.51); Absolute Neutrophil Count 4.4 X10^3/uL (2.0-7.7); Basophil# 0.08 X10^3/uL; Basophil% 1.1 % (0-1); Eosinophil# 0.14 X10^3/uL; Eosinophils% 1.9 % (0-5); Hematocrit 44.8 % (40-54); Hemoglobin 14.9 g/dL (13.0-16.5); Lymphocyte # 1.83 X10^3/ul (0.83-4.51); Lymphocyte % 25.4 % (19-41); Mean Corp Hgb Conc 33.3 g/dL (32-36); Mean Corpuscular Hgb 26.9 pg (27.0-32.0); Mean Platelet Vol. 10.2 fl (6.2-12.0); Monocyte% 9.7 % (0-10); NRBC Flagged by Analyzer 0 % (0-5); Neutrophil # 4.43 X10^3/uL (2.7-7.7); Neutrophil % 61.6 % (47-70); Platelet Count 227 K/mm3 (150-450); RBC Distribution Width CV 14.2 % (11.6-14.6); RBC Distribution Width SD 41.4 fl (35.1-43.9); Red Blood Count 5.53 M/mm3 (4.6-6.2); White Blood Count 7.2 K/mm3 (4.4-11.0)
[2024-12-30] MEDS: morphine 8 MG/ML Syringe 6 MG IV (23:35)
[2024-12-30] MEDS: 0.9% Normal Saline (1000mL) 1,000 ML 250 ML IV (23:35)
[2024-12-30] MEDS: Ondansetron 4 MG/2 ML Vial IV (23:35)
[2024-12-30 23:49] LABS: Color, Urine Yellow (Yellow); Glucose, Dipstick Normal (Normal); Ketone-Dipstick Negative (Negative); Leukocyte Esterase-Dipstick 25 /ul (Negative); Nitrite-Dipstick Negative (Negative); Occult Blood-Urine Negative /ul (Negative); Protein-Dipstick 15 mg/dl (Negative); Specific Gravity, Urine 1.025 (1.002-1.030); Urine Bilirubin Dipstick Negative (Negative); Urine Clarity Clear (Clear); Urine Urobilinogen Normal (Normal)
--- NOTE | 2024-12-30 23:50 | EDS_ITS ---
HPI History of Present Illness Chief Complaint: Flank Pain Informant: patient Narrative Narrative: Patient is a 44-year-old male with history of hypertension, CKD, kidney stones and diverticulitis presenting with 2 days of worsening left flank pain. States he had been established with urology at but his urologist left and cannot get into the new urologist in [place]. He knows that the pain is intermittent. It fluctuates in intensity. It is worse with movements. It radiates around to his left groin. He is also noticed urinary frequency and feels that he is almost not emptying his bladder completely. Denies any fever or chills. No nausea or vomiting reported. Has taken Tylenol dual action and a leftover Percocet with no relief of his symptoms. States he could not sleep last night because the pain was so bad. Did note that when he urinated there is a small stone in the urine sample and is wondering if this is a kidney stone. Denies any associated rash. No other complain concerns reported at this time. [facility] Medical History Kidney stones Diverticulitis Home Medications ?Medication ?Instructions ?Recorded ?Last Taken ?Type Omeprazole [Prilosec] 20 mg PO BID 11/11/13 History lisinopril 10 mg tablet 10 mg PO DAILY 10/08/22 Unkn own History sertraline 50 mg tablet 50 mg PO DAILY 10/08/22 Unkn own History lorazepam 1 mg tablet (Ativan) 1 mg PO QHS PRN sleep # 5 tabs 10/09/22 Unknown Rx oxycodone 5 mg tablet 5 mg PO Q8H PRN pain 3 days #10 12/31/24 Unknown Rx tabs Allergy/AdvReac Type Severity Reaction Status Date / Time No Known Allergies Allergy Verified 12/30/24 22:55 Social History Smoking Status: Never smoker ROS ROS ED Constitutional Constitutional ED: Denies chills or fever(s) Cardiovascular Cardiovascular: Denies chest pain Respiratory/Chest Respiratory/Chest: Denies cough or dyspnea Gastrointestinal Gastrointestinal: Denies abdominal pain, diarrhea, nausea or vomiting Genitourinary Genitourinary ED: Reports urinary frequency and other Details: decreased volume of urine ; Denies dysuria or hematuria Musculoskeletal Musculoskeletal: Reports back pain; Denies arthralgias or myalgias Neurologic Neurologic: Denies paresthesias or weakness Hematologic/Lymphatic Hematologic/Lymphatic: Denies easy bleeding or easy bruising EXAM Physical Exam Const Vital Signs: 12/30/24 22:52 Temperature 98.2 F Temperature Source Oral Pulse Rate 105 H Respiratory Rate 18 Blood Pressure 153/94 H Blood Pressure Mean 113 Pulse Ox 97 Oxygen Delivery Method Room Air Positive well nourished and well developed General Appearance ED: well developed and NAD HEENT Reports moist mucous membranes Neck supple Chest Wall inspection of chest normal and palpation of chest normal Resp normal respiratory effort and clear to auscultation bilaterally Cardio regular rate and regular rhythm GI normal to inspection, nondistended, normoactive bowel sounds, non-tender and no n-distended Back/Spine General Back: CVA tenderness left Thoracic Spine / Upper Back: Negative for thoracic spinal tenderness or paraspinal muscle tenderness Lumbar Spine / Lower Back: Negative for lumbar spinal tenderness Extremity normal to inspection General Extremety ED: Negative for edema General Extremity: Negative for edema Neuro oriented x3 Sensorium / Orientation: alert Motor Exam: Negative for general weakness Psych mental status grossly normal Skin no rashes or lesions noted and no wounds MDM MDM MDM Narrative Medical decision making narrative: Patient is a 44-year-old male presenting with 2 days of worsening left flank pain. Radiates around. Does not history of kidney stones. Does report some mild urinary symptoms as well. Differential includes renal colic, muscle skeletal pain, diverticulitis, hydronephrosis, urinary tract infection/pyelonephritis and SAHIL. He does not have overlying rash suspicion for shingles. Upon arrival patient mildly tachycardic with a blood pressure of 153/94 and a heart rate of 105. Patient given IV morphine and fluids as well as Zofran for symptom control. Workup included CBC, BMP and urinalysis obtained which is largely normal. He has a mild elevation of his creatinine 1.63 but patient states his most recent labs also showed a creatinine of 1.6 so I do not think this is acute. I do not have any labs in the last year on the patient. No signs of leukocytosis consistent with infection. Electrolytes otherwise normal. Urinalysis shows no bacteria or red blood cells low suspicion for urinary tract infection or hemorrhagic cystitis. CT abdomen pelvis without contrast does not show any acute process. He does have bilateral nonobstructing nephrolithiasis. Question if he might of passed a stone recently. On repeat evaluation patient has some improvement of pain but states it is still there he would like for the pain medication. Will be given a dose of oxycodone and short course of oxycodone for outpatient follow-up. Given his mild renal sufficiency would like to stay away from NSAIDs at this time. I will be given referral outpatient for urology. Otherwise follow-up with his primary care doctor. Discussed that the other cause of his pain could be muscle skeletal as well as lumbar radiculopathy. Patient given return precautions. I discharged home in stable and improved condition. Lab Data Attestation: I reviewed the patient's lab results. Labs: Laboratory Results - last 24 hr 12/30/24 23:08 WBC 7.2 RBC 5.53 Hgb 14.9 Hct 44.8 MCV 81.0 MCH 26.9 L MCHC 33.3 RDW Std Deviation 41.4 RDW Coeff of Joel 14.2 Plt Count 227 MPV 10.2 Immature Gran % (Auto) 0.300 Neut % (Auto) 61.6 Lymph % (Auto) 25.4 [place] % (Auto) 9.7 Eos % (Auto) 1.9 Baso % (Auto) 1.1 H Absolute Neuts (auto) 4.4 Absolute Lymphs (auto) 1.83 Nucleated RBC % 0 Sodium 136 Potassium 4.1 Chloride 101 Carbon Dioxide 23.0 Anion Gap 12 BUN 16 Creatinine 1.63 H Estim Creat Clear Calc 73.85 Est GFR (MDRD) Non-Af 53 L BUN/Creatinine Ratio 10.1 Glucose 107 H Calcium 9.7 Urine Color Yellow Urine Clarity Clear Urine pH 6.0 Ur Specific [place] 1.025 Urine Protein 15 H Urine Glucose (UA) Normal Urine Ketones Negative Urine Occult Blood Negative Urine Nitrite Negative Urine Bilirubin Negative Urine Urobilinogen Normal Ur Leukocyte Esterase 25 H Urine RBC 0 SEEN Urine WBC 0-5 SEEN Ur Squamous Epith Cells 0-5 SEEN Urine Bacteria 0 SEEN Urine Mucus 0 SEEN Radiography Diagnostic Testing: Clinical Impression(s) from Imaging Studies Abdomen/Pelvis CT 12/30/24 23:22 IMPRESSION: No evidence of acute intra-abdominal process on noncontrast imaging. Bilateral nonobstructing nephrolithiasis as above. Diverticulosis without diverticulitis. Previous partial sigmoid resection noted. Reading Location: [facility] Discharge Plan Triage Chief Complaint: Flank Pain ED Provider: Dali Shepard Dx/Rx/DC Orders Clinical Impression: Acute left flank pain, Renal insufficiency, mild Instructions: ED Flank Pain, Uncertain Cause, ED Renal Insufficiency Prescriptions: New oxycodone 5 mg tablet 5 mg PO Q8H PRN (Reason: pain) 3 Days Qty: 10 0RF No Action Omeprazole [Prilosec] 40 MG capsule 20 mg PO BID Patient Comments: GERD lisinopril 10 mg tablet 10 mg PO DAILY sertraline 50 mg tablet 50 mg PO DAILY lorazepam [Ativan] 1 mg tablet 1 mg PO QHS PRN (Reason: sleep) Qty: 5 0RF Primary Care Provider: Channing Garcia Referrals: Edwin Phan MD [Med Staff - Active Staff] - [facility] Doctor,Out of [Non-Staff] - Print Language: Swedish Disposition Disposition: Home, Self Care
[2024-12-31 00:03] LABS: Anion Gap 12 (5-15); BUN 16 mg/dL (4-19); BUN/Creat Ratio 10.1 RATIO (10-20); Calcium,Total 9.7 mg/dL (7.6-11.0); Chloride 101 mmol/L (98-108); Creatinine, Serum 1.63 mg/dL (0.70-1.20); EST Glomerular Filtration Rate 53 (>60); Estimated Creatinine Clearance 73.85 ml/min (50-250); Glucose 107 mg/dL (70-99); Potassium 4.1 mmol/L (3.3-5.1); Sodium Level 136 mmol/L (133-145); White Blood Cells 0-5 SEEN /hpf (0-5)
[2024-12-31 00:04] LABS: Squamous Epithelial Cells - UA 0-5 SEEN /hpf (0-5)
[2024-12-31 01:05] VITALS: BP 128/96; PULSE 75; RESP 14; TEMP 36.3; O2SAT 97
[2024-12-31] MEDS: oxyCODONE 5 MG Tablet PO (01:08)
== END 2024-12-31 01:11 | disposition home or self-care (01) ==
PROVIDERS: Emergency Provider Emergency Medicine; PCP Physician Assistant; Visit Provider Emergency Medicine
DX: R10.9 Unspecified abdominal pain (principal); I12.9 Hypertensive chronic kidney disease with stage 1 through stage 4 chronic kidney disease, or unspecified chronic kidney disease; N18.9 Chronic kidney disease, unspecified; Z79.899 Other long term (current) drug therapy
CPT/HCPCS: 74176; 80048; 81001; 85025; 96361; 96374; 96375; 99284; A4216; J2405

== ENCOUNTER 2025-03-15 23:16 | Emergency (ER) | payer OTHER, SELFPAY ==
[2025-03-15 23:18] VITALS: BP 144/91; PULSE 102; RESP 16; TEMP 36.8; O2SAT 99; BMI 33.1
[2025-03-15 23:20] VITALS: BP 144/91; PULSE 102; RESP 16; TEMP 36.8; O2SAT 99
[2025-03-16 00:20] VITALS: BP 150/92; PULSE 97; RESP 16; TEMP 36.6; O2SAT 95
[2025-03-16 01:00] VITALS: BP 157/67; PULSE 90; RESP 18; TEMP 36.6; O2SAT 94
--- NOTE | 2025-03-16 01:07 | CT_ITS ---
PROCEDURE: ABDOMEN/PELVIS WITHOUT CONT 03/16/2025 REASON FOR EXAM: FLANK PAIN TECHNIQUE: ABDOMEN/PELVIS WITHOUT CONT Noncontrast technique limits evaluation of the abdominal and pelvic viscera. Coronal and Sagittal reconstruction series were provided. One or more dose reduction techniques were used (e.g., Automated exposure control, adjustment of the mA and/or kV according to patient size, use of iterative reconstruction technique). RADIATION DOSE SUMMARY: CTDlvol: 9 mGy DLP: 1064 mGycm COMPARISON: 12/31/2024 FINDINGS: Dependent atelectasis. Additional basilar ground-glass airspace disease which may be infectious in etiology. Follow up chest imaging is recommended. Correlate for possible COVID pneumonia. Normal heart size. Unremarkable gallbladder, liver, pancreas, spleen, adrenal glands. Bilateral nephrolithiasis, largest stone measuring 5 mm. No hydronephrosis or ureteral stone. Normal bladder. Normal prostate. No retroperitoneal or pelvic adenopathy. No free air. Small hiatal hernia. Nondistended bowel. Normal appendix. Multiple diverticula. Status post sigmoid anastomosis. No acute large bowel findings. No acute abdominal wall findings. CT/Abdomen/Pelvis without Cont IMPRESSION: Possible pneumonia. Recommend chest imaging. No acute abdominopelvic findings. [facility]
[2025-03-16] MEDS: 0.9% Normal Saline (1000mL) 1,000 ML 999 ML IV (01:42)
[2025-03-16 01:43] LABS: Mucous, Urine 0 SEEN /hpf (<or=2+)
[2025-03-16 01:48] LABS: Hematocrit 41.4 % (40-54); Hemoglobin 14.1 g/dL (13.0-16.5); Immature Granulocytes Count 0.030 X10^3/uL (0.0-0.0); Mean Corp Hgb Conc 34.1 g/dL (32-36); Mean Corpuscular Volume 82.6 fL (80-94); Mean Platelet Vol. 9.7 fl (6.2-12.0); NRBC Flagged by Analyzer 0 % (0-5); Platelet Count 200 K/mm3 (150-450); RBC Distribution Width CV 15.4 % (11.6-14.6); RBC Distribution Width SD 46.1 fl (35.1-43.9); Red Blood Count 5.01 M/mm3 (4.6-6.2); White Blood Count 10.3 K/mm3 (4.4-11.0)
[2025-03-16 02:00] VITALS: BP 126/80; PULSE 96; RESP 15; TEMP 36.6; O2SAT 94
[2025-03-16 02:06] LABS: Color, Urine Red (Yellow); Glucose, Dipstick Normal (Normal); Ketone-Dipstick Negative (Negative); Leukocyte Esterase-Dipstick 25 /ul (Negative); Nitrite-Dipstick Negative (Negative); Occult Blood-Urine 250 /ul (Negative); Protein-Dipstick 100 mg/dl (Negative); Specific Gravity, Urine 1.020 (1.002-1.030); Urine Bilirubin Dipstick Negative (Negative)
[2025-03-16 02:36] LABS: Anion Gap 12 (5-15); BUN 12 mg/dL (4-19); BUN/Creat Ratio 9.2 RATIO (10-20); Calcium,Total 9.2 mg/dL (7.6-11.0); Carbon Dioxide 24.0 mmol/L (21.0-32.0); Chloride 101 mmol/L (98-108); Estimated Creatinine Clearance 88.88 ml/min (50-250); Glucose 102 mg/dL (70-99); Potassium 4.1 mmol/L (3.3-5.1)
[2025-03-16 02:39] LABS: Red Blood Cells-Urine > 100 SEEN /hpf (0-5); Squamous Epithelial Cells - UA 0-5 SEEN /hpf (0-5); Transitional Epithelial - Ur 0-5 SEEN /hpf (0-5)
[2025-03-16 02:53] VITALS: BP 99/57; PULSE 92; RESP 15; TEMP 36.7; O2SAT 92
--- NOTE | 2025-03-16 03:15 | EX.ED.DYSGE1 ---
HPI History of Present Illness Chief Complaint: Back Informant: patient and spouse/S.O. Narrative Narrative: Patient is a 44-year-old male with past medical history of of hypertension and recurrent kidney stones. He states a few days ago he noticed that his right low back was sore almost as if he had slept on it wrong. He states as time passed the area became tighter and that it hurts to move. He reports he also then developed pain along the right lower abdomen towards the midline and noticed his urine was more red in color consistent with his history of passing kidney stones. He denies any loss of bowel or bladder control or IV drug use. He denies any recent surgical interventions or injections. He states he has been taking [id number] medications with minimal symptom improvement and secondary to this presents for evaluation. [facility] Medical History (Updated 03/16/25 @ 07:[address] Channing Padilla, DO) Gout Restless leg HTN (hypertension) Asthma Gastric ulcer Anxiety Kidney stones Diverticulitis Home Medications ?Medication ?Instructions ?Recorded ?Last Taken ?Type Omeprazole [Prilosec] 20 mg PO BID 11/11/13 12/14/15 History lisinopril 10 mg tablet 10 mg PO DAILY 10/08/22 Unknown History albuterol sulfate 90 mcg/actuation inhalation 03/15/25 Unknown History aerosol inhaler hydrochlorothiazide 25 mg tablet 25 mg PO DAILY 03/15/25 Unknown History lisinopril 20 mg tablet 20 mg PO DAILY 03/15/25 Unknown History mirabegron 25 mg tablet,extended 25 mg PO DAILY 03/15/25 Unknown History release 24 hr oxycodone-acetaminophen 5 mg-325 1 tab PO Q6H PRN pain 03/15/25 Unknown History mg tablet pantoprazole 40 mg tablet,delayed 40 mg PO BID 03/15/25 Unknown History release ropinirole 1 mg tablet 1 mg PO QHS 03/15/25 Unknown History tadalafil 5 mg tablet 5 mg PO DAILY 03/15/25 Unknown History cephalexin 500 mg capsule 500 mg PO TID 7 days #21 caps 03/16/25 Unknown Rx methocarbamol 500 mg tablet 1,000 mg (2 x 500 mg) PO 4X/DAY 03/16/25 Unknown Rx PRN Muscle pain/spasm #56 tabs oxycodone-acetaminophen 5 mg-325 1 tab PO Q6H PRN pain 3 days #12 03/16/25 Unknown Rx mg tablet (Percocet) tabs phentermine 37.5 mg tablet 37.5 mg PO DAILY 03/16/25 Unknown History (Adipex-P) Allergy/AdvReac Type Severity Reaction Status Date / Time No Known Allergies Allergy Verified 03/15/25 23:18 Social History Smoking Status: Never smoker ROS ROS ED Constitutional Constitutional ED: Denies chills or fever(s) ENT ENT ED: Denies sore throat Cardiovascular Cardiovascular: Denies chest pain Respiratory/Chest Respiratory/Chest: Denies cough or dyspnea Gastrointestinal Gastrointestinal: Reports abdominal pain; Denies diarrhea, nausea or vomiting Genitourinary Genitourinary ED: Reports hematuria; Denies dysuria or urinary frequency Musculoskeletal Musculoskeletal: Reports back pain Integumentary Denies rash Neurologic Neurologic: Denies headache(s) or paresthesias Hematologic/Lymphatic Hematologic/Lymphatic: Denies easy bleeding or easy bruising EXAM Physical Exam Const Vital Signs: 03/15/25 23:18 03/15/25 23:20 03/16/25 00:20 Temperature 98.2 F 98.2 F 97.8 F Temperature Source Oral Oral Oral Pulse Rate 102 H 102 H 97 Respiratory Rate 16 16 16 Blood Pressure 144/91 H 144/91 H 150/92 H Blood Pressure Mean 108 108 111 Pulse Ox 99 99 95 Oxygen Delivery Method Room Air Room Air Room Air 03/16/25 01:00 03/16/25 02:00 03/16/25 02:53 Temperature 97.9 F 97.8 F 98.1 F Temperature Source Oral Oral Oral Pulse Rate 90 96 92 Respiratory Rate 18 15 15 Blood Pressure 157/67 H 126/80 H 99/57 L Blood Pressure Mean 97 95 71 Pulse Ox 94 94 92 Oxygen Delivery Method Room Air Room Air Room Air 03/16/25 03:29 Temperature 97.9 F Temperature Source Pulse Rate 70 Respiratory Rate 18 Blood Pressure 124/67 H Blood Pressure Mean 86 Pulse Ox 98 Oxygen Delivery Method Positive well nourished and well developed General Appearance ED: well developed; Negative for pallor HEENT HEENT Narrative: Normocephalic atraumatic Eyes PERRL and EOMs intact bilaterally General Eye ED: Negative for scleral icterus Neck supple Resp normal respiratory effort and clear to auscultation bilaterally Cardio regular rate and regular rhythm Rate: other Other Details: Heart is regular rate and rhythm without murmurs rubs or gallop Radial and carotid pulses are equal and symmetric GI non-distended and no masses GI Narrative: Abdomen is soft and nondistended with hypoactive bowel sounds. There is pain with palpation in the right lower quadrant and suprapubic region. No voluntary guarding or rigidity or pulsatile mass. No peritoneal signs. No organomegaly to suggest urinary retention Auscultation: hypoactive bowel sounds Palpation: soft Back/Spine Back/Spine Narrative: No bony deformity or step-off of the thoracic or lumbar spine no midline tenderness to palpation There is right paralumbar tension and spasm noted that worsens with sidebending and rotation; there is also mild right CVA pain noted No saddle anesthesia. Negative straight leg raise. No clonus or Babinski. Patellar reflexes are plus 2 out of 4 bilaterally. Extremity normal to inspection Neuro oriented x3, CN's II-XII intact bilaterally and no sensory deficits noted Sensorium / Orientation: alert Motor Exam: strength 5/5 throughout Psych mental status grossly normal Skin no rashes or lesions noted and no wounds Skin Narrative: No overlying soft tissue changes to suggest trauma or infection General Skin Exam: Negative for jaundice or pallor MDM MDM MDM Narrative Medical decision making narrative: Patient arrived to the ER hypertensive but has a past medical history of this. He denies any loss of bowel or bladder control or IV drug use or recent surgical procedures going against cauda equina or epidural abscess or discitis. He does not have any midline tenderness going against a lumbar compression fracture and there is been no report or signs of trauma. Pain was greatest in the right paralumbar muscle belly region that worsens with sidebending rotation indicating patient has lumbosacral strain. However because of his history of kidney stones and hematuria there is concern for a concurrent kidney stone. Basic labs were obtained with urine sample and noncontrast CT of the abdomen/pelvis. Labs shows no signs of acute kidney injury or clinically significant electrolyte abnormality. Patient also does not have acute blood loss anemia or thrombocytopenia. Urine sample shows +1 bacteria with 5-10 white cells and greater than 100 red blood cells. There is no concurrent contamination with skin cells. The CT scan showed bilateral kidney stones but no ureteral stone. At this time patient did not have findings for acute kidney injury or urosepsis. Based on his hematuria but no stone within the ureter he most likely passed a kidney stone recently. As there is changes concerning for developing infection he will be placed on antibiotics as well. The radiologist did Have concern for potential pneumonia but the patient is not coughing he does not have a fever or leukocytosis nor is he hypoxic or reportedly short of breath and therefore this is not clinically correlate. As he has had improvement of symptoms with medication provided in the ER and vitals are stable he is otherwise safe for discharge. History & Record Review Discussion w/independent historian: Patient and Significant other Lab Data Attestation: I reviewed the patient's lab results. Labs: Laboratory Results - last 24 hr 03/16/25 01:30 WBC 10.3 RBC 5.01 Hgb 14.1 Hct 41.4 MCV 82.6 MCH 28.1 MCHC 34.1 RDW Std Deviation 46.1 H RDW Coeff of Joel 15.4 H Plt Count 200 MPV 9.7 Immature Gran % (Auto) 0.300 Neut % (Auto) 71.6 H Lymph % (Auto) 17.2 L [place] % (Auto) 8.5 Eos % (Auto) 1.7 Baso % (Auto) 0.7 Absolute Neuts (auto) 7.4 Absolute Lymphs (auto) 1.78 Nucleated RBC % 0 Sodium 137 Potassium 4.1 Chloride 101 Carbon Dioxide 24.0 Anion Gap 12 BUN 12 Creatinine 1.35 H Estim Creat Clear Calc 88.88 Est GFR (MDRD) Non-Af 66 BUN/Creatinine Ratio 9.2 L Glucose 102 H Calcium 9.2 Urine Color Red Urine Clarity Turbid Urine pH 6.0 Ur Specific Ravia 1.020 Urine Protein 100 H Urine Glucose (UA) Normal Urine Ketones Negative Urine Occult Blood 250 H Urine Nitrite Negative Urine Bilirubin Negative Urine Urobilinogen Normal Ur Leukocyte Esterase 25 H Urine RBC > 100 SEEN Urine WBC 5-10 SEEN Ur Squamous Epith Cells 0-5 SEEN Ur Transition Epith Cell 0-5 SEEN Urine Bacteria 1+ Urine Mucus 0 SEEN Radiography Diagnostic Testing: Clinical Impression(s) from Imaging Studies Abdomen/Pelvis CT 03/16/25 01:07 IMPRESSION: Possible pneumonia. Recommend chest imaging. No acute abdominopelvic findings. Reading Location: [facility] Discharge Plan Triage Chief Complaint: Back Other Complaint: Complaint ED Provider: Channing Padilla Dx/Rx/DC Orders Clinical Impression: Acute myofascial strain of lumbosacral region, Hematuria, Hypertension Instructions: Understanding Lumbosacral Strain, ED Back Sprain/Strain Prescriptions: New cephalexin 500 mg capsule 500 mg PO TID 7 Days Qty: 21 0RF oxycodone-acetaminophen [Percocet] 5-325 mg tablet 1 tab PO Q6H PRN (Reason: pain) 3 Days Qty: 12 0RF methocarbamol 500 mg tablet 1,000 mg PO 4X/DAY PRN (Reason: Muscle pain/spasm) Qty: 56 0RF No Action Omeprazole [Prilosec] 40 MG capsule 20 mg PO BID Patient Comments: GERD lisinopril 10 mg tablet 10 mg PO DAILY lisinopril 20 mg tablet 20 mg PO DAILY oxycodone-acetaminophen 5-325 mg tablet 1 tab PO Q6H PRN (Reason: pain) hydrochlorothiazide 25 mg tablet 25 mg PO DAILY albuterol sulfate 90 mcg/actuation HFA aerosol inhaler inhalation mirabegron 25 mg tablet extended release 24 hr 25 mg PO DAILY ropinirole 1 mg tablet 1 mg PO QHS tadalafil 5 mg tablet 5 mg PO DAILY pantoprazole 40 mg tablet,delayed release (DR/EC) 40 mg PO BID phentermine [Adipex-P] 37.5 mg tablet 37.5 mg PO DAILY Rx Instructions: must administer 30 minutes before or 1-2 hours after breakfast Stand Alone Forms: ED Work / School Excuse Primary Care Provider: Channing Garcia Referrals: Channing Garcia PA [Primary Care Provider] - Activity Restrictions/Additional Instructions: Your workup showed stones within each kidney but not outside. There is concern for developing urinary tract infection and therefore take your antibiotic as directed. Continue to stretch and heat your low back to reduce pain and speed healing. Return to the ER should you have any further concerns Print Language: Romansh Disposition Disposition: Home, Self Care Discharge Date/Time: 03/16/25 03:30
[2025-03-16 03:29] VITALS: BP 124/67; PULSE 70; RESP 18; TEMP 36.6; O2SAT 98
== END 2025-03-16 03:30 | disposition home or self-care (01) ==
PROVIDERS: Emergency Provider Emergency Medicine; PCP Physician Assistant; Visit Provider Emergency Medicine
DX: S39.012A Strain of muscle, fascia and tendon of lower back, initial encounter (principal); M62.830 Muscle spasm of back; X58.XXXA Exposure to other specified factors, initial encounter; I10 Essential (primary) hypertension; R10.31 Right lower quadrant pain; J45.909 Unspecified asthma, uncomplicated; Z79.899 Other long term (current) drug therapy; N20.0 Calculus of kidney; R31.9 Hematuria, unspecified
CPT/HCPCS: 74176; 80048; 81001; 85025; 96361; 96374; 96375; 96376; 99284; A4216; J2405